=== PATIENT | male | born 1975 | race Caucasian/White ===

== ENCOUNTER 2017-04-16 18:45 | Emergency (ER) | payer MEDICARE ==
[~2017-04-16] VITALS: Ht 188 cm; Wt 90.9 kg
[2017-04-16 18:46] VITALS: BP 135/88; PULSE 71; RESP 16; TEMP 98.8; O2SAT 99
[2017-04-16] MEDS ORDERED: HYDR-3366 PO ×2 (19:23)
[2017-04-16] MEDS ORDERED: ADDE10 PO (19:23)
[2017-04-16] MEDS ORDERED: MELO-1 PO (20:24)
[2017-04-16] MEDS ORDERED: AMOX875T PO (20:24)
--- NOTE | 2017-04-16 20:24 | PD ---
HPI Chief Complaint: Cold / Flu Symptoms Time Seen by Provider: 20:09 Travel History International Travel<30 days: No Contact w/Intl Traveler<30days: No Traveled to known affect area: No History of Present Illness HPI Patient is a 41-year-old male presenting to emergency department for evaluation of a headache, body aches, nasal congestion. Patient states his symptoms started approximately 2 weeks ago, last week he reports vomiting and a fever which has resolved a week ago. He continues to have a frontal headache that is pressure-like in nature and a 7 out of 10 at times. He denies any visual changes, photophobia. He does report generalized body aches, a cough which he states is dry and nonproductive. He also states his eyes are crusted and watery in the morning. Patient is not taking any [id number] therapy to alleviate his symptoms. PFSH Past Medical History ADHD: Yes Medical other: Yes (CHRONIC BACK PAIN ) Tetanus Vaccination: < 5 Years Social History Alcohol Use: No Tobacco Use: Yes Substance Use: No Allergies-Medications (Allergen,Severity, Reaction): Coded Allergies: gabapentin (Verified Allergy, Severe, 04/16/17) FACIAL SWELLING pregabalin (Verified Allergy, Severe, 04/16/17) JAUNDICE, TONGUE SWEELING Reported Meds & Prescriptions Reported Meds & Active Scripts Active Reported Adderall (Amphetamine-Dextroamphetamine) 10 Mg Tab 10 Mg PO BID Avoid late evening doses. Space doses at least 4 to 6 hours if more than once/day dosing. [place] (Hydrocodone-Acetaminophen) 10-325 Mg Tab 1 Tab PO Q6H PRN [place] (Hydrocodone-Acetaminophen) 10-325 Mg Tab 1 Tab PO Q4H PRN Review of Systems Except as stated in HPI: all other systems reviewed are Neg General / Constitutional: No: Fever, Chills Eyes: Positive: Drainage, Tearing, No: Blurred Vision, Photophobia, Redness, Visual changes HENT: Positive: Headaches, Rhinitis, Congestion, No: Sore Throat, Neck Pain Cardiovascular: No: Chest Pain or Discomfort Respiratory: Positive: Cough, No: Shortness of Breath, Wheezing Gastrointestinal: No: Nausea, Vomiting, Abdominal Pain Musculoskeletal: Positive: Myalgias Physical Exam Narrative GENERAL: Well-developed, well-nourished, well-appearing male. Resting comfortably in no acute distress. SKIN: Warm and dry. HEAD: Atraumatic. Normocephalic. Tenderness to palpation over ethmoid and maxillary sinuses. EYES: Pupils equal and round. No scleral icterus. No injection or drainage. No crusting or drainage noted. ENT: No nasal bleeding or discharge. Mucous membranes pink and moist. NECK: Trachea midline. No JVD. CARDIOVASCULAR: Regular rate and rhythm. RESPIRATORY: No accessory muscle use. Clear to auscultation. Breath sounds equal bilaterally. GASTROINTESTINAL: Abdomen soft, non-tender, nondistended. Hepatic and splenic margins not palpable. MUSCULOSKELETAL: Extremities without clubbing, cyanosis, or edema. No obvious deformities. NEUROLOGICAL: Awake and alert. No obvious cranial nerve deficits. Motor grossly within normal limits. Five out of 5 muscle strength in the arms and legs. Normal speech. PSYCHIATRIC: Appropriate mood and affect; insight and judgment normal. Data Data Last Documented VS Vital Signs Date Time Temp Pulse Resp B/P (MAP) Pulse Ox O2 Delivery O2 Flow Rate FiO2 04/16/17 18:46 98.8 71 16 135/88 (104) 99 Room Air MDM Medical Decision Making Medical Screen Exam Complete: Yes Emergency Medical Condition: Yes Interpretation(s) Vital Signs Date Time Temp Pulse Resp B/P (MAP) Pulse Ox O2 Delivery O2 Flow Rate FiO2 04/16/17 18:46 98.8 71 16 135/88 (104) 99 Room Air Differential Diagnosis Bronchitis versus viral URI versus sinusitis versus allergic rhinitis versus other Narrative Course Patient is a 41-year-old male that presented to emergency department evaluation of cold symptoms, headache which is been ongoing for 2 weeks. It appears his symptoms are resolving as they initially started out with a fever and vomiting which he has not had in over a week. Patient vital signs are stable, his lungs are clear to auscultation. At this point patient will be treated for acute sinusitis due to the ongoing frontal sinus pressure. Patient was requesting referral to a doctor to address his chronic pain in his back. Patient was advised on the [facility]. He was advised that often pain management requires a referral from primary care. He will be given a prescription for meloxicam. Furthermore he was encouraged to complete full course of antibiotics as prescribed even if he begins to feel better. He was encouraged to return to emergency department for any new or worsening symptoms. Patient verbalized understanding of these instructions. Patient is stable for discharge. Diagnosis Primary Impression: Acute sinusitis Qualified Codes: J01.90 - Acute sinusitis, unspecified Referrals: [facility] Patient Instructions: General Instructions, Sinusitis (GEN) Additional Instructions: Complete full course of antibiotics as prescribed even if you begin to feel better Continue symptom management, obtain [id number] Sudafed or similar agent and use as needed and as directed for nasal congestion Follow-up with a primary doctor Return to emergency department for any new or worsening symptoms Med/Other Pt SpecificInfo: Prescription(s) given Scripts Meloxicam (Meloxicam) 15 Mg Tab 15 MG PO DAILY Y for PAIN SCALE 1 TO 10, #30 TAB 0 Refills Prov: Samia Nunez 04/16/17 Amoxicillin (Amoxicillin) 875 Mg Tab 875 MG PO BID for Infection for 10 Days, #20 TAB 0 Refills Prov: Samia Nunez 04/16/17 Disposition: 01 DISCHARGE HOME Condition: Stable Samia Nunez Apr 16, 2017 20:24
== END 2017-04-16 20:30 | disposition home or self-care (01) ==
LOC: NEPK 18:45
DX: J01.90 Acute sinusitis, unspecified (principal); Z72.0 Tobacco use
CPT/HCPCS: 99284

== ENCOUNTER 2017-05-07 21:45 | Emergency (ER) | payer MEDICARE, OTHER ==
[~2017-05-07] VITALS: Ht 188 cm; Wt 87.0 kg
[~2017-05-07 21:45] MED LIST: ADDE10 PO; AMOX875T PO; HYDR-3366 PO; MELO15TA20 PO
[2017-05-07 21:58] VITALS: BP 124/68; PULSE 85; RESP 15; TEMP 98.6; O2SAT 99
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
[2017-05-07] MEDS ORDERED: LORazepam 2 MG/ML VIAL ONE (22:07)
[2017-05-07] MEDS ORDERED: LORazepam 2 MG/ML VIAL IM ONE ×2 (22:15→22:30)
[2017-05-07] MEDS ORDERED: LORazepam 2 MG/ML VIAL IV PUSH ONE (23:15)
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
[2017-05-07 23:48] LABS: BASOPHIL # 0.1 TH/MM3 (0-0.2); BASOPHIL % 0.8 % (0.0-2.0); EOSINOPHIL # 0.2 TH/MM3 (0-0.4); EOSINOPHIL % 2.4 % (0.0-4.0); HEMATOCRIT 43.4 % (39.0-51.0); HEMO FLAGS DIFF FINAL; LYMPH % 24.9 % (9.0-44.0); LYMPHOCYTE # 2.3 TH/MM3 (1.0-4.8); MEAN CELL VOLUME 97.1 FL (80.0-100.0); MEAN CORPUSCULAR HEMOGLOBIN 33.6 PG (27.0-34.0); MEAN CORPUSCULAR HGB CONC 34.6 % (32.0-36.0); MONO % 6.5 % (0.0-8.0); NEUT % 65.4 % (16.0-70.0); PLATELET COUNT 295 TH/MM3 (150-450); RED BLOOD COUNT 4.47 MIL/MM3 (4.50-5.90); RED CELL DISTRIBUTION WIDTH 12.8 % (11.6-17.2); WHITE BLOOD COUNT 9.2 TH/MM3 (4.0-11.0)
[2017-05-08 00:11] LABS: ALKALINE PHOSPHATASE 74 U/L (45-117); ALT (GPT) 31 U/L (12-78); TOTAL BILIRUBIN ADULT 0.2 MG/DL (0.2-1.0)
[2017-05-08 00:26] LABS: ACETAMINOPHEN LESS THAN 2.0 MCG/ML (10.0-30.0); ALCOHOL 240 MG/DL (0-5); ANION GAP 8 MEQ/L (5-15); AST (GOT) 33 U/L (15-37); BICARBONATE 26.5 MEQ/L (21.0-32.0); BLOOD UREA NITROGEN 10 MG/DL (7-18); CHLORIDE 103 MEQ/L (98-107); GLOMERULAR FILTRATION RATE 66 ML/MIN (>89); POTASSIUM 3.9 MEQ/L (3.5-5.1); SODIUM (NA) 137 MEQ/L (136-145)
[2017-05-08 06:29] VITALS: BP 125/70; PULSE 104; RESP 18; O2SAT 97
[2017-05-08] MEDS ORDERED: NORC5TAB PO (10:42)
[2017-05-08] MEDS ORDERED: ACETAMINOPHEN/HYDROcodone 325 MG/5 MG TAB PO ONE (10:45)
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
== END 2017-05-08 11:07 | disposition home or self-care (01) ==
LOC: NEPC 21:45 → NEPJ 05-08 11:07
DX: S02.40DA Maxillary fracture, left side, initial encounter for closed fracture (principal); F10.129 Alcohol abuse with intoxication, unspecified; F90.9 Attention-deficit hyperactivity disorder, unspecified type; Z72.0 Tobacco use; Y04.2XXA Assault by strike against or bumped into by another person, initial encounter; Z79.899 Other long term (current) drug therapy
CPT/HCPCS: 70450; 70486; 80053; 80307; 85025; 96372; 96374; 99285; J2060